=== PATIENT | male | born 1950 | race Native Hawaiian/Other Pacific Islander ===

== ENCOUNTER 2018-10-23 03:23 | Inpatient (IN) | payer OTHER ==
[2018-10-23] VITALS (90 sets, daily range): BP systolic 55–1334; BP diastolic 22–130; TEMP 96–99.6; Ht 188 cm; Wt 133.4 kg
[~2018-10-23] VITALS: Ht 188 cm; Wt 133.4 kg
[~2018-10-23 03:23] MED LIST: BUMETANIDE2 MG PO; CARV3.12 PO; CIPR500T PO; ELIQUIS5 MG PO; ESCITALOPRAM20 MG PO; LIPITOR80 MG PO; LISI10TA11 PO; MYRBETRIQ50 MG PO; OMEPRAZOLE DR40 MG PO; RISP2TAB2 PO; SPIRONOLACT25 MG PO; TRAM50TA PO; TYLENOL325 MG PO
[2018-10-24] VITALS (62 sets, daily range): BP systolic 15–139; BP diastolic 34–632; TEMP 97.6–99.1
[2018-10-24 06:08] LABS: POTASSIUM 4.6 mmol/L (3.6-5.2)
[2018-10-24 06:26] LABS: PLATELET COUNT 285 K/uL (142-355)
[2018-10-25] VITALS (22 sets, daily range): BP systolic 100–158; BP diastolic 32–81; TEMP 97.5–99.2
[2018-10-25 09:09] LABS: PLATELET COUNT 332 K/uL (142-355)
[2018-10-25 09:23] LABS: POTASSIUM 4.4 mmol/L (3.6-5.2)
[2018-10-26] VITALS (17 sets, daily range): BP systolic 107–137; BP diastolic 36–68; TEMP 98–99.4
[2018-10-26 05:07] LABS: PLATELET COUNT 301 K/uL (142-355)
[2018-10-26 05:14] LABS: POTASSIUM 4.4 mmol/L (3.6-5.2)
[2018-10-27] VITALS (18 sets, daily range): BP systolic 99–167; BP diastolic 43–82; TEMP 97.2–99.4
[2018-10-27 04:53] LABS: PLATELET COUNT 290 K/uL (142-355)
[2018-10-27 06:44] LABS: POTASSIUM 4.4 mmol/L (3.6-5.2)
[2018-10-28] VITALS (23 sets, daily range): BP systolic 109–148; BP diastolic 49–89; TEMP 97.7–99.3
[2018-10-28 12:19] LABS: PLATELET COUNT 275 K/uL (142-355)
[2018-10-28 12:34] LABS: POTASSIUM 3.9 mmol/L (3.6-5.2)
[2018-10-29] VITALS (23 sets, daily range): BP systolic 93–141; BP diastolic 37–73; TEMP 98.2–99.4
[2018-10-29 05:36] LABS: PLATELET COUNT 257 K/uL (142-355)
[2018-10-30] VITALS (23 sets, daily range): BP systolic 99–145; BP diastolic 38–79; TEMP 97.5–99
[2018-10-30 06:35] LABS: PLATELET COUNT 206 K/uL (142-355)
[2018-10-30 06:52] LABS: POTASSIUM 3.6 mmol/L (3.6-5.2)
[2018-10-31] VITALS (11 sets, daily range): BP systolic 98–140; BP diastolic 43–67; TEMP 98–99.2
[2018-10-31 05:53] LABS: PLATELET COUNT 202 K/uL (142-355)
[2018-10-31 06:08] LABS: POTASSIUM 3.6 mmol/L (3.6-5.2)
[2018-10-31] MEDS ORDERED: PANTOPRAZOLE 40MG TA PO (12:43)
[2018-10-31] MEDS ORDERED: SILV1CRE EX (12:44)
[2018-10-31] MEDS ORDERED: ASCO500T18 PO (12:45)
[2018-10-31] MEDS ORDERED: ZINC220 MG PO (12:45)
[2018-10-31] MEDS ORDERED: MULTI VITAMN PO (12:47)
[2018-10-31] MEDS ORDERED: LACTSYP31 PO (12:48)
[2018-10-31] MEDS ORDERED: ACET325S RE (12:49)
== END 2018-10-31 11:05 | disposition other institution (70) | DRG 871 ==
LOC: ED 03:23 → ICU 04:30
PROVIDERS: Family Medicine; ADMIT Internal Medicine
DX: R65.21 Severe sepsis with septic shock (principal); L89.153 Pressure ulcer of sacral region, stage 3; J96.00 Acute respiratory failure, unspecified whether with hypoxia or hypercapnia; I48.92 Unspecified atrial flutter; N39.0 Urinary tract infection, site not specified; I42.8 Other cardiomyopathies; E46 Unspecified protein-calorie malnutrition; R07.89 Other chest pain; I95.89 Other hypotension; T68.XXXA Hypothermia, initial encounter; I48.91 Unspecified atrial fibrillation; I10 Essential (primary) hypertension; N40.0 Benign prostatic hyperplasia without lower urinary tract symptoms; E87.8 Other disorders of electrolyte and fluid balance, not elsewhere classified; E66.8 Other obesity; F32.89 Other specified depressive episodes; I44.7 Left bundle-branch block, unspecified; E78.00 Pure hypercholesterolemia, unspecified; Z86.73 Personal history of transient ischemic attack (TIA), and cerebral infarction without residual deficits; G89.4 Chronic pain syndrome; L89.892 Pressure ulcer of other site, stage 2; L89.512 Pressure ulcer of right ankle, stage 2
CPT/HCPCS: 36415; 36600; 51702; 80048; 80053; 80202; 81000; 82550; 82553; 82570; 82805; 83605; 83880; 84300; 84443; 84484; 85027; 87040; 87077; 87086; 87088; 87185; 87186; 87205; 93005; 93306; 94660; 94760; 96360; 96365; 99285; J0744; J1335; J1650; J2185; J2405; J2543; J3370; J3490

== ENCOUNTER 2018-11-02 00:41 | Inpatient (IN) | payer OTHER ==
[~2018-11-02] VITALS: Ht 188 cm; Wt 142.0 kg
[2018-11-02] VITALS (34 sets, daily range): BP systolic 18–1121; BP diastolic 41–74; TEMP 96.4–100.6; Ht 188 cm; Wt 142.0 kg
[~2018-11-02 00:41] MED LIST changes: +ACET325S RE; +ASCO500T18 PO; +LACTSYP31 PO; +MULTI VITAMN PO; +PANTOPRAZOLE 40MG TA PO; +SILV1CRE EX; +ZINC220 MG PO
--- NOTE | 2018-11-02 00:45 | NUR ---
PT RESTING WITH EYES CLOSED, NO DISTRESS OR PAIN NOTED, BOTH IV SITES INTACT, RESP RATE REMAINS IN MID 20s, O2 AT 2LPM VIA NC, CORDERO PATENT DRAINING TO BEDSIDE, VITALS BEING MONITORED, SURVEILLANCE CAMERA TECHNICIAN IN USE, REPOSITIONED TO L SIDE WITH FEET ELEVATED OFF OF BED ON PILLOWS, PT YELLS/MOANS OUT LOUDLY WHEN YOU TOUCH HIM OR MOVE HIM BUT APPEARS TO FALL RIGHT BACK TO SLEEP, ONLY SHEET ON PT NO BLANKET DUE TO FEVER, WILL MONITOR CLOSELY, RAILS UP, BED IN LOW POSITION, HOB ELEVATED.
--- NOTE | 2018-11-02 01:00 | NUR ---
PT ADMITTED BACK FROM [facility] FOR [facility] AND LETHARGY. RESTING WITH EYES CLOSED WILL OPEN EYES AT TIMES AND MAINLY RESPONDS TO PAIN OR CALLING HIS NAME AT TIMES, DOES NOT FOLLOW COMMANDS AND DOES NOT ANSWER MANAGER EMERGENCY DEPARTMENT'S QUESTIONS, SKIN HOT, PT APPEARS PALE, RESP RATE SLIGHTLY ELEVATED 26-28, O2 AT 2LPM VIA NC WITH SAT OF 96-99%, 16F CORDERO PATENT DRAINING TO BEDSIDE, 20G IV LOCK INTACT TO R WRIST AND 20G IV LOCK INTACT TO L HAND, SEE WOUND SECTION AND ADMISSION ASSESSMENT FOR MORE INFO. WILL MONITOR CLOSELY, RAILS UP, BED IN LOW POSITION, HOB ELEVATED, FEET ELEVATED ON PILLOWS.
--- NOTE | 2018-11-02 02:10 | NUR ---
PT RESTING IN BED WITH EYES CLOSED, NO S/S OF PAIN OR DISTRESS NOTED, RESP RATE IN MID 20s, CORDERO PATENT, O2 AT 2LPM VIA NC, 20G IV LOCK INTACT TO R WRIST, 20G IV INTACT TO L HAND, VITALS BEING MONITORED, FITTING ROOM OPERATOR IN USE WITH RATE IN LOW 60s WITH A-FIB NOTED, REPOSITIONED TO BACK, FEET ELEVATED OFF OF BED, WILL MONITOR CLOSELY, RAILS UP, BED IN LOW POSITION.
--- NOTE | 2018-11-02 03:50 | NUR ---
PT RESTING IN BED WITH EYES CLOSED, NO S/S OF PAIN OR DISTRESS NOTED, RESP RATE 24, 20G IV LOCK INTACT TO R WRIST, 20G IV INTACT TO L HAND WITH D51/2 NS INFUSING AT 80ML/HR PER ORDER, 16F CORDERO PATENT DRAINING TO BEDSIDE, VITALS BEING MONITORED CLOSELY(B/P AND TEMP), SEMICONDUCTOR WAFERS MARKER IN USE, REPOSITIONED PT (WITH ASSIST OF 2 OTHER STAFF MEMBERS) TO R SIDE WITH FEET ELEVATED ON PILLOWS AND PILLOW BETWEEN KNEES, O2 AT 2LPM VIA NC WITH SAT OF 99%, PT DOES MOAN SLIGHTLY AT TIMES WHEN MOVED IF HE IS IN PAIN BUT ONLY WHEN STAFF MOVES HIM APPEARS TO FALL RIGHT BACK TO SLEEP AFTER REPOSITIONED. WILL MONITOR CLOSELY, RAILS UP, BED IN LOW POSITION.
[2018-11-02 04:56] LABS: PLATELET COUNT 228 K/uL (142-355)
--- NOTE | 2018-11-02 06:15 | NUR ---
RESTING WITH EYES CLOSED, NO S/S OF PAIN OR DISTRESS NOTED, WILL MONITOR CLOSELY, FEET ELEVATED ON PILLOWS, IV SITES INTACT, CORDERO PATENT, VITALS BEING MONITORED, RAILS UP, BED IN LOW POSITION.
--- NOTE | 2018-11-02 07:00 | NUR ---
PT RESTING WITH EYES CLOSED. HOB UP, FEET UP ON PILLOWS, CORDERO TO BSD WITH MED YELLOW/YOSELIN URINE.IV L FA 20G WITH DD1/2NS INFUSING AT 80ML/HR WITHOUT PROBLEMS.
--- NOTE | 2018-11-02 08:00 | NUR ---
DR ELYSSA COLON IN TO SEE PT. WOUNDS TO SAILAJA FEET,R UPPER BACK, BUTTOCKS OBSERVED PER DR COLON NEW ORDERS. WOUND CARE TO ALL AREAS.
--- NOTE | 2018-11-02 10:30 | NUR ---
PT RESTING QUIETLY. FEET ELEVATED OFF PILLOWS. MOUTH CARE.
--- NOTE | 2018-11-02 11:19 | NUR ---
[facility] CALLED TO DR ELYSSA COLON. NO NEW ORDERS.
--- NOTE | 2018-11-02 12:45 | NUR ---
PT FED MEAL,ATTEMPTED TO FEED SELF, HELD CUP BRIEFLY & ASKED FOR' MORE WATER PLEASE'. PT ASSISTED TO EAT & DRINK.
--- NOTE | 2018-11-02 14:30 | NUR ---
PT AWAKE WATCHING TV. PT REQUEST'WILL YOU TURN THE PICTURE AROUND'? TV TURNED FOR PT TO HAVE A BETTER VIEW. PT CONTINUES TO HOLLER OUT 'NO,NO.NO' WHEN HE IS TURNED. PT WILL GRAB & PINCH STAFF AT TIMES EVEN AFTER TURNING EXPLAINED TO PT.
--- NOTE | 2018-11-02 16:30 | NUR ---
PT RESTING WITH EYES CLOSED. NO C/O AT THIS TIME.
--- NOTE | 2018-11-02 17:30 | NUR ---
PT BEING FED DINNER PER CNT. PT VERBALIZES SMALL AMT. HOLDS CUP HIMSELF.DENIES PAIN.
--- NOTE | 2018-11-02 21:45 | NUR ---
PT'S NIGHT MEDS GIVEN CRUSHED IN PUDDING, PT TOLERATED WITH NO PROBLEMS, DRANK FROM A STRAW(SLOW TO GET IT STARTED). PROTEINEX GIVEN WITH NIGHT MEDS, WILL MONITOR, RAILS UP, BED IN LOW POSITION.
--- NOTE | 2018-11-02 22:30 | NUR ---
PT AROUSES TO STAFF TALKING TO HIM, NO DISTRESS NOTED, IV INTACT WITH FLUID ONGOING, RESP RATE NONLABORED, O2 AT 2LPM VIA NC, CORDERO PATENT, VITALS BEING MONITORED, CATTLE SHIPPER IN USE. PT'S FACE WIPED WITH MOIST CLOTH, DRANK A FEW SIPS OF WATER. REPOSITIONED TO L SIDE, FEET ELEVATED ON PILLOWS AND PILLOW BETWEEN KNEES, WILL MONITOR CLOSELY, RAILS UP, BED IN LOW POSITION.
[2018-11-03] VITALS (16 sets, daily range): BP systolic 119–160; BP diastolic 49–70; TEMP 97.4–100.1
--- NOTE | 2018-11-03 02:00 | NUR ---
RESTING WITH EYES CLOSED NO DISTRESS OR PAIN NOTED, IV INTACT, CORDERO PATENT. REPOSITIONED TO BACK, FEET ELEVATED ON PILLOWS, WILL MONITOR, RAILS UP, BED IN LOW POSITION.
--- NOTE | 2018-11-03 02:01 | NUR ---
ERROR IN PREVIOUS NOTE, PT REPOSITIONED TO L SIDE.
--- NOTE | 2018-11-03 04:04 | NUR ---
RESTING WITH EYES CLOSED, NO S/S OF PAIN OR DISTRESS NOTED, 20G IV INTACT TO L HAND WITH NS INFUSING PER ORDER, RESP RATE NONLABORED, 16F CORDERO PATENT DRAINING TO BEDSIDE, O2 AT 2LPM VIA NC, VITALS BEING MONITORED, DOCUMENTATION CONSULTANT IN USE. REPOSITIONED TO BACK, FEET ELEVATED ON PILLOW, DRESSING INTACT TO R OUTER FOOT. RAILS UP, BED IN LOW POSITION, HOB ELEVATED, WILL MONITOR.
[2018-11-03 05:33] LABS: PLATELET COUNT 237 K/uL (142-355)
--- NOTE | 2018-11-03 05:45 | NUR ---
RESTING WITH EYES CLOSED, NO DISTRESS NOTED, REPOSITIONED PT TO R SIDE, FEET ELEVATED ON PILLOW AND PILLOW BETWEEN KNEES, IV INTACT, CORDERO PATENT, O2 AT 2LPM VIA NC WITH SAT OF 98%, VITALS BEING MONITORED, WILL MONITOR CLOSELY. PT CONTINUES TO GET UPSET WHEN MOVED AND YELLOW OUT.
[2018-11-03 06:07] LABS: POTASSIUM 4.1 mmol/L (3.6-5.2)
--- NOTE | 2018-11-03 07:42 | NUR ---
PATIENT RESTING QUIETLY HOB UP, EYES CLOSED RESP EVEN DR ELYSSA COLON VISITED. CHECKED PATIENT.
--- NOTE | 2018-11-03 09:15 | NUR ---
PATIENT REPOSITIONED IN BED UP IN BED FEET UP ON PILOOWS KEEPING HEELS OFF BED. PATIENT PUSHING AGAINST RAILS AND STAFF DOSEN'T LIKE TO BE TURNED. CARLOSARS OUT. RECIEVED AM MEDS TAKING FEW BITES SOFT FOODS. TAKING PO FLUIDS WELL.
--- NOTE | 2018-11-03 10:44 | NUR ---
SPOKE WITH NITZA WILL CALL [facility] ABOUT POSSIBLE TRANSFER BACK TO RESIDENTIAL AND/OR HOSPICE CARE. PATIENT SITTING UP IN BED CONTINUES TAKING PO FLUIDS WELL.
--- NOTE | 2018-11-03 13:34 | NUR ---
CHANGED DRESSING RIGHT FOOT WET TO DRY. WRAPPED IN MELI DR COLON HERE OBSERVED WOUNDS TO BOTH FEET. WRAPPED LEFT HEEL WITH 4X4 AND WRAPPED WITH MELI BOTH FEET OFF BED UP ON PILLOWS. HOB UP PATIENT AT 25 % LUNCH TRAY. UNABLE TO CHEW UP FRIES ABLE TO EAT SOFT FOODS JYOTHI PUREED DIET WELL POOR DENTITION BROKEN/MISSING TEETH.
--- NOTE | 2018-11-03 14:30 | NUR ---
EXPLAINED PROCEDURE TO PATIENT, VERBALIZED UNDERSTANDING TURNED TO LEFT SIDE SLOWLY PATIENT DID GOOD DID NOT ATTEMPT TO GRAP AND/OR PUSH AWAY FROM STAFF. REMOVED DRESSING TO BUTTOCKS, AREA CLEANED WASHED APPLIED SILVER SULFADIAZINE OINT TO AREA. APPEARS TO HAVE SOME GRANULATION AROUND EDGES. PT TURNED TO LEFT SIDE CONTINUE WITH BED BAATH WASHED BACK LEGS ELLIOT CARE DONE HOB UP JYOTHI WELL.
--- NOTE | 2018-11-03 16:39 | NUR ---
PATIENT RESTING QUIETLY EYES CLOSED RESP EVEN. IV FLUIDS CONTINUE. DR COLON STOPPED BY NO NEW ORDERS. NITZA STOPPED BY SPOKE WITH HOSPICE HOUSE NOT TO FAR FROM [facility]. FAXED PAPERWORK FOR THEM TO LOOK AT. MAY BE CALLING BACK.
--- NOTE | 2018-11-03 19:01 | NUR ---
ATE 75 % DINNER TRAY JYOTHI WELL O2 OFF SAT 99-100 ON ROOM AIR WILL KEEP OFF 02 AND CONTINUE TO MONITOR. REPOSITIONED IN BED. HOB UP. IV FLUID CONTINUE.
--- NOTE | 2018-11-03 22:39 | NUR ---
PT WAS REPOSITIONED IN BED. PT DRANK PO FLUIDS. PT ABLE TO SWALLOW MEDS. LOWER EXT ARE ELEVATED.
[2018-11-04] VITALS (11 sets, daily range): BP systolic 117–135; BP diastolic 34–75; TEMP 97.8–98.6
--- NOTE | 2018-11-04 07:46 | NUR ---
DR COLON VISITED CHECKED PATIENT PATIENT SLEEPING, APPEARS IN NO DISTRESS. IV FLUIDS INFUSING WITHOUT DIFFICULTY. SAT 99 ON 2L NC. O2 OFF WILL CONTINUE TO MONITOR.
[2018-11-04 09:51] LABS: POTASSIUM 3.6 mmol/L (3.6-5.2)
--- NOTE | 2018-11-04 10:30 | NUR ---
DR COLON VISITED CHECKED LABS CHECKED PATIENT, RECIEVED ORDERS. PT REPOSITIONED IN BED. RECIEVED CALL FROM [facility], FAXED REQUESTED LABS EKG CHEST X RAY. SPOKE WITH NITZA WORKING TO GET PT ADMITTED TO HOSPICE CARE.
[2018-11-04 11:08] LABS: PLATELET COUNT 281 K/uL (142-355)
--- NOTE | 2018-11-04 11:30 | NUR ---
EXPLAINED TO PATIENT THAT WE NEEDED TO TURN HIM, PT OK UNTIL START TURNING HOLLARS OUT WANTS TO STOP UP IN BED REPOSITIONED IN BED WOUND CARE DONE. NOTED AREAS OF CONCERN LEFT CALF RIGHT SHOULDER POSTERIOR. ATTEMPT TO KEEP WT USING PILLOWS AND WEDGES ELLIOT CARE DONE WET TO DRY DRESSING RIGHT FOOT DRY DRESSING TO LEFT HEEL.
--- NOTE | 2018-11-04 13:35 | NUR ---
PATIENT RESTING QUIETLY AT PRESENT NITZA HERE MAKING COPIES PLACED IN PACKET PT HAS BEEN ACCEPTED BY HOSPICE, WILL BE LEAVING TOMORROW TO GO HOME.
--- NOTE | 2018-11-04 16:00 | NUR ---
ASSIST WITH POSITION CHANGE, WARMED UP LEFTOVER FROM LUNCH ATE POTATOES AND MEAT LOAF. HOB UP JYOTHI WELL TAKING ICE TEA ASSIST WITH MOUTHCARE. ASSISTED WITH SHAVE, NO COMPLAINTS VOICED.
--- NOTE | 2018-11-04 18:07 | NUR ---
ASSISTED WITH DINNER TRAY ATE 75 % JYOTHI WELL, NO COMPLAINTS TAKING PO FLUIDS WELL. CONTINUES WITH O2 OFF TODAY SAT 99% ON ROOM AIR. DENIES PAIN, UNTIL TURNED IN BED.
[2018-11-05] VITALS (10 sets, daily range): BP systolic 122–142; BP diastolic 57–87; TEMP 97.7–99.2
[2018-11-05 05:15] LABS: PLATELET COUNT 319 K/uL (142-355)
[2018-11-05 05:30] LABS: POTASSIUM 3.8 mmol/L (3.6-5.2)
--- NOTE | 2018-11-05 08:30 | NUR ---
PT SITTING UP IN BED TALKATIVE,HELPING FEED SELF MEAL. CORDERO TO BSD WITH YELLOW URINE WITH SEDIMENT IN BAG.
--- NOTE | 2018-11-05 09:45 | NUR ---
WOUND CARE TO ALL WOUNDS. COCCYX WOUND BLOODY WITH NO INCREASE IN SIZE., CLEANED WITH NS, SILVADENE APPLIEDCOVERED WITH ABD PAD.R OUTER FT WOUND 3-4 CMS ESCHAR DRY. CLEANED WITH NS,W/D, DRESSING APPLIED FLUFFED 4X4'S TO AREA NEAR R SMALL TOE,NO CHANGE INSIZE. DRY/TANISH.R OUTER ANKLE DRY 2CM AREA PINK PADDED WITH FLUFFED 4X4'S & WRAPPED WITH MELI WRAP. R HIP RED 5X6 AREA,MASSAGED & TURNED OFF SITE. UPPER BACK WITH 2 4-5CMS X 1CM DRIED OLD BLISTER AREAS. NO DRAINAGE.L HEEL 4-5CM BLISTER,PADDED WITH 4X4'S & WRAPPED WITH MELI WRAP. L OUTER LEG DARK RED/PURPLE AREA 5-6 CMS. FEET ELEVATED OFF BED WITH PILLOWS.
--- NOTE | 2018-11-05 11:02 | NUR ---
PT MEDICATED WITH TYLENOL PER 'S ORDER FOR PT'S C/O' MY STOMACH HURTS A LITTLE'.
--- NOTE | 2018-11-05 11:30 | NUR ---
PT RESTING WITH EYES CLOSED.
--- NOTE | 2018-11-05 12:01 | NUR ---
TALKED WITH VALENTE AT [facility], FAMILY/POA JAYASHREE DEVONTE AWARE OF PT'S POTENTIAL D/C TODAY. POA AWARE OF PT'S CONDITION. EQUIPMENT HAS ALREADY BEEN SET UP AT HIS HOME.
--- NOTE | 2018-11-05 13:30 | NUR ---
PT FED SELF LUNCH WITH ASSIST. ORIENTED TO NAME. DENIES PAIN. CONTINUES TO CRY OUT 'NO NO NO' WHEN SOMEONE MENTIONS TIME TO TURN TO ANOTHER SIDE. PT WILL PINCH STAFF AT TIMES WHEN BEING TURNED.
--- NOTE | 2018-11-05 14:30 | NUR ---
LINEN CHANGE & PERICARE, PARTIAL SPONGE BATH. SM SOFT BROWN BM.
--- NOTE | 2018-11-05 16:00 | NUR ---
RESTING WITH EYES CLOSED.
--- NOTE | 2018-11-05 17:30 | NUR ---
SHIV ALEJANDRA [facility] CALLED TO [facility] ON PT'S POTENTIAL D/C TIME.THEY WILL DO ADMIT IN THE AM IF PT GETS THERE TOO LATE TODAY.
--- NOTE | 2018-11-05 17:45 | NUR ---
JAYASHREE BATEMAN CALLED TO [facility] ON PT'S DEPARTURE TIME. GAVE ESTIMATED TIME OF ARRIVAL FOR [facility] OF 500-530 PM PER THEIR OFFICE STAFF.
--- NOTE | 2018-11-05 19:20 | NUR ---
[facility] HERE TO TRANSPORT PT. PT CLEAN & DRY.
--- NOTE | 2018-11-05 19:30 | NUR ---
NEW DNR SIGNED PER DR BRANDIE BOB REQUESTED PER [facility].PT D/C'D WITH CORDERO CATHETER.
--- NOTE | 2018-11-05 19:35 | NUR ---
IV D/C'D CANNULA INTACT. SITE SECURED PER ROBY WHITEHEAD RN.
--- NOTE | 2018-11-05 19:47 | NUR ---
PT D/C STABLE VIA STRETCHER TO AMBULANCE FOR TRANSPORT HOME.PT WITH NO BELONGINGS AT THE [facility] PER [facility] STAFF TOLD TO ROBY WHITEHEAD RN.
== END 2018-11-05 19:50 | disposition home or self-care (01) | DRG 871 ==
LOC: ICU 00:41
PROVIDERS: Emergency Medicine; ADMIT Family Medicine
DX: A41.89 Other specified sepsis (principal); L89.313 Pressure ulcer of right buttock, stage 3; L89.893 Pressure ulcer of other site, stage 3; F32.3 Major depressive disorder, single episode, severe with psychotic features; I42.8 Other cardiomyopathies; E46 Unspecified protein-calorie malnutrition; N39.0 Urinary tract infection, site not specified; I48.2 Chronic atrial fibrillation; I44.7 Left bundle-branch block, unspecified; I25.10 Atherosclerotic heart disease of native coronary artery without angina pectoris; Z86.73 Personal history of transient ischemic attack (TIA), and cerebral infarction without residual deficits; E78.00 Pure hypercholesterolemia, unspecified; R53.1 Weakness; R62.7 Adult failure to thrive; N40.0 Benign prostatic hyperplasia without lower urinary tract symptoms; I10 Essential (primary) hypertension; D72.828 Other elevated white blood cell count; L89.329 Pressure ulcer of left buttock, unspecified stage; L89.512 Pressure ulcer of right ankle, stage 2; L89.621 Pressure ulcer of left heel, stage 1; L89.101 Pressure ulcer of unspecified part of back, stage 1; L89.891 Pressure ulcer of other site, stage 1
CPT/HCPCS: 36415; 80053; 82550; 82553; 83605; 83880; 84484; 85027; 87070; 87077; 87185; 87186; 87205; 93005; 94760; J0696; J1335; J3490